=== PATIENT | female | born 1970 ===

== ENCOUNTER 2017-03-13 23:57 | Observation (INO) | payer BC ==
[2017-03-14 00:14] VITALS: BMI 23.0
[2017-03-14] MEDS ORDERED: Sodium Chloride 0.9% 1,000 ML IV STA (00:33)
[2017-03-14] MEDS ORDERED: HYDROmorphone 1 mg/ml ISec IVP STA ×2 (00:33→04:00)
--- NOTE | 2017-03-14 00:39 | ED PDOC ---
Arrival/HPI - General Time Seen by Provider: 03/14/17 00:27 Historian: Patient - History of Present Illness Narrative History of Present Illness (Text): 03/14/17 00:38 A 47 year old female, whose past medical history includes kidney stones and asthma, presents to the emergency department complaining of onset right flank pain radiating to right side of abdomen. Patient reports vomiting once and some nausea. Patient denies any history of fever, chills or any other complaints at this time. Symptom Onset: Sudden Symptom Course: Unchanged Activities at Onset: Rest Context: Home Past Medical History - Provider Review Nursing Documentation Reviewed: Yes - Cardiac Hx Cardiac Disorders: No - Pulmonary Hx Asthma: Yes - HEENT Hx HEENT Disorder: No - Endocrine/Metabolic Hx Endocrine Disorders: No - Hematological/Oncological Hx Blood Disorders: No - Integumentary Hx Dermatological Disorder: No - Musculoskeletal/Rheumatological Hx Musculoskeletal Disorders: No - Gastrointestinal Hx Gastrointestinal Disorders: No - Genitourinary/Gynecological Hx Genitourinary Disorders: No - Psychiatric Hx Psychophysiologic Disorder: No Hx Substance Use: No - Surgical History Hx Section: Yes Other/Comment: Right shoulder and right knee sx - Anesthesia Hx Anesthesia: No Family/Social History - Physician Review Nursing Documentation Reviewed: Yes Family/Social History: No Known Family HX Smoking Status: Never Smoked Hx Alcohol Use: No Hx Substance Use: No Allergies/Home Meds Allergies/Adverse Reactions: Allergies No Known Allergies Allergy (Verified 08/08/16 18:40) Home Medications: Home Meds Medication Instructions Recorded Confirmed Albuterol Sulfate [Proventil] 2 puff IH PRN PRN 08/08/16 03/14/17 Review of Systems - Physician Review All systems were reviewed & negative as marked: Yes - Review of Systems Constitutional: absent: Fevers, Other (chills) Gastrointestinal: Abdominal Pain (r sided), Nausea, Vomiting Skin: Other (right flank pain) Physical Exam Vital Signs Reviewed: Yes Vital Signs Temp Pulse Resp BP Pulse Ox 03/14/17 03:52 83 20 129/97 H 100 03/14/17 00:14 99 F 76 20 142/91 H 98 Appearance: Positive for: Well-Appearing, Non-Toxic, Comfortable Pain Distress: None Mental Status: Positive for: Alert and Oriented X 3 - Systems Exam Head: Present: Atraumatic, Normocephalic Pupils: Present: PERRL Extroacular Muscles: Present: EOMI Conjunctiva: Present: Normal Mouth: Present: Moist Mucous Membranes Neck: Present: Normal Range of Motion Respiratory/Chest: Present: Clear to Auscultation, Good Air Exchange. No: Respiratory Distress, Accessory Muscle Use Cardiovascular: Present: Regular Rate and Rhythm, Normal S1, S2. No: Murmurs Abdomen: Present: Normal Bowel Sounds. No: Tenderness, Distention, Peritoneal Signs Back: Present: Other (r flank tenderness) Upper Extremity: Present: Normal Inspection. No: Cyanosis, Edema Lower Extremity: Present: Normal Inspection. No: Edema Neurological: Present: GCS=15, CN II-XII Intact, Speech Normal Skin: Present: Warm, Dry, Normal Color. No: Rashes Psychiatric: Present: Alert, Oriented x 3, Normal Insight, Normal Concentration Medical Decision Making ED Course and Treatment: 03/14/17 00:37 Impression: A 47 year old female with right flank pain radiating to right side of abdomen. Plan: -- labs -- Urinalysis -- Dilaudid, IV fluids, Zofran -- Reassess and disposition Prior Visits: Notes and results from previous visits were reviewed. Patient was last seen in the emergency department on 08/08/16 for evaluation of an asthma attack. Progress Notes: CT Abdomen and Pelvis Without Intravenous Contrast FINDINGS: LOWER THORAX: No infiltrate seen in the lung bases. ABDOMEN: LIVER: No acute abnormality of the liver identified. GALLBLADDER AND BILE DUCTS: No CT evidence of acute cholecystitis. No evidence of significant biliary ductal dilatation. PANCREAS: No CT evidence of acute pancreatitis. SPLEEN: No acute abnormality of the spleen identified. ADRENALS: No acute abnormality of the adrenal glands identified. KIDNEYS AND URETERS: 3.5 mm obstructing stone at the right UVJ/ureterovesicular junction. This is best seen on image 147 of series 2, and is causing mild right hydroureteronephrosis. There is also mild right perinephric and periureteric stranding Multiple tiny, nonobstructing bilateral renal stones. 1 cm low density lesion in the left kidney, most likely a cyst. STOMACH AND BOWEL: No acute abnormality of the stomach, small bowel or colon identified. No evidence of bowel obstruction. APPENDIX: Appendix is seen, and is within normal limits in appearance. PELVIS: BLADDER: No acute abnormality of the bladder identified. REPRODUCTIVE: Small 2.5 cm low-density lesion in the right ovary, suspicious for a small right ovarian cyst. This appears to have a thick wall, and there is adjacent right adnexal fluid. No associated gas. Uterus has a bulging contour anteriorly and posteriorly, most likely secondary to multiple uterine fibroids. The largest of these is an approximately 3.3 cm posterior fibroid. ABDOMEN and PELVIS: INTRAPERITONEAL SPACE: Small amount of free fluid in the cul-de-sac. No evidence of free intraperitoneal air. BONES/JOINTS:No acute fractures or other acute bony abnormality noted. SOFT TISSUES: Extensive (too numerous to count) small, round densities are seen in the gluteal subcutaneous fat bilaterally, some of which are calcified. This most likely represent extensive injection pain on this. There is also marked, diffuse stranding of the gluteal subcutaneous fat bilaterally. Post operative changes involving the anterior abdominal and pelvic wall, which are most likely related to prior abdominal plasty. No evidence of soft tissue gas. VASCULATURE: No evidence of abdominal aortic aneurysm. No evidence of periaortic hemorrhage. LYMPH NODES: No evidence of diffuse lymphadenopathy. IMPRESSION: - 3.5 mm obstructing stone at the right UVJ/ureterovesicular junction. - Suspect a small cystic lesion in the right ovary, with adjacent fluid. This could represent an involuting cyst, such as an involuting corpus luteal cyst. Recommend follow up pelvic ultrasound as indicated clinically. - Findings suspicious for extensive injection granulomas in the gluteal subcutaneous fat bilaterally. There is also fat stranding in the gluteal subcutaneous fat bilaterally. This could represent extensive scarring or postoperative fluid, however, diffuse gluteal cellulitis can also have this appearance, and recommend clinical correlation. - See above for remaining findings. Dictated and Authenticated by: Jessica Malik MD 03/14/2017 4:14 AM Eastern Time ([place] & [place]) 03/14/17 05:[address] Patricio, who agrees and accepts patient under his service. - Lab Interpretations Lab Results: 03/14/17 00:20 03/14/17 00:20 Lab Results 03/14/17 00:20: WBC 7.6 D, RBC 4.59, Hgb 13.5, Hct 38.9, MCV 84.7, MCH 29.4, MCHC 34.7, RDW 12.7, Plt Count 236, MPV 10.7 03/14/17 00:20: Sodium 143, Potassium 3.9, Chloride 105, Carbon Dioxide 26, Anion Gap 16, BUN 15, Creatinine 1.0, Est GFR ( Amer) > 60, Est GFR (Non- Af Amer) 59, Random Glucose 120 H, Calcium 9.1, Total Bilirubin 0.3, AST 26, ALT 24, Alkaline Phosphatase 40, Total Protein 7.3, Albumin 4.3, Globulin 3.0, Albumin/Globulin Ratio 1.4, Lipase 137 03/14/17 00:20: Urine Color Yellow, Urine Appearance Clear, Urine pH 8.0, Ur Specific [place] 1.015, Urine Protein Trace H, Urine Glucose (UA) Negative, Urine Ketones Trace H, Urine Blood Moderate H, Urine Nitrate Negative, Urine Bilirubin Negative, Urine Urobilinogen 0.2, Ur Leukocyte Esterase Trace H, Urine RBC 10 - 15, Urine WBC 2 - 5, Ur Epithelial Cells 1 - 3, Urine Bacteria Small, Urine HCG, Qual Negative I have reviewed the lab results: Yes - RAD Interpretation Radiology Orders: 03/14/17 02:35 ABD & PELVIS W/O PO OR IV CONT [CT] Stat - Medication Orders Current Medication Orders: Discontinued Medications Hydromorphone HCl (Dilaudid) 1 mg IVP STAT STA Stop: 03/14/17 00:34 Last Admin: 03/14/17 00:46 Dose: 1 mg MAR Pain Assessment Document 03/14/17 00:46 RD (Rec: 03/14/17 00:47 RD [id number]) Pain Reassessment Is this a pain reassessment? No Sleep Is patient sleeping during reassessment? No Presence of Pain Presence of Pain Yes IVP Administration Document 03/14/17 00:46 RD (Rec: 03/14/17 00:47 RD [id number]) Charges for Administration # of IVP Administrations 1 Hydromorphone HCl (Dilaudid) 1 mg IVP STAT STA Stop: 03/14/17 04:01 Last Admin: 03/14/17 04:10 Dose: 1 mg MAR Pain Assessment Document 03/14/17 04:10 HARDEEP (Rec: 03/14/17 04:10 [id number][place] Pain Reassessment Is this a pain reassessment? Yes Sleep Is patient sleeping during reassessment? No Presence of Pain Presence of Pain Yes Location Left, Right or Bilateral Right Pain Location Body Site Abdomen IVP Administration Document 03/14/17 04:10 HARDEEP (Rec: 03/14/17 04:10 [id number]) Charges for Administration # of IVP Administrations 1 Sodium Chloride (Sodium Chloride 0.9%) 1,000 mls @ 999 mls/hr IV .Q1H1M STA Stop: 03/14/17 01:33 Last Admin: 03/14/17 00:47 Dose: 999 mls/hr eMAR Start Stop Document 03/14/17 00:47 RD (Rec: 03/14/17 00:47 RD [id number]) Intravenous Solution Start Date 03/14/17 Start Time 00:47 End Date 03/14/17 End time 01:47 Total Infusion Time 60 Ondansetron HCl (Zofran Inj) 4 mg IVP ONCE ONE Stop: 03/14/17 00:34 Last Admin: 03/14/17 00:44 Dose: 4 mg IVP Administration Document 03/14/17 00:44 RD (Rec: 03/14/17 00:47 RD [id number]) Charges for Administration # of IVP Administrations 1 Ondansetron HCl (Zofran Inj) 4 mg IVP ONCE ONE Stop: 03/14/17 04:01 Last Admin: 03/14/17 04:10 Dose: 4 mg IVP Administration Document 03/14/17 04:10 HARDEEP (Rec: 03/14/17 04:11 [id number]) Charges for Administration # of IVP Administrations 1 - Scribe Statement The provider has reviewed the documentation as recorded by the Ruth Zimmerman Provider Scribe Attestation: All medical record entries made by the Ruth were at my direction and personally dictated by me. I have reviewed the chart and agree that the record accurately reflects my personal performance of the history, physical exam, medical decision making, and the department course for this patient. I have also personally directed, reviewed, and agree with the discharge instructions and disposition. Disposition/Present on Arrival - Present on Arrival Any Indicators Present on Arrival: No History of DVT/PE: No History of Uncontrolled Diabetes: No Urinary Catheter: No History Surgical Site Infection Following: None - Disposition Have Diagnosis and Disposition been Completed?: Yes Diagnosis: Renal colic, Intractable pain Disposition: HOSPITALIZED Disposition Time: 05:18 Patient Plan: Observation Condition: STABLE
[2017-03-14 00:52] LABS: HEMATOCRIT 38.9 % (36.0-48.0); MEAN CELL VOLUME 84.7 fl (80.0-105.0); MEAN CORPUSCULAR HEMOGLOBIN 29.4 pg (25.0-35.0); MEAN CORPUSCULAR HGB CONC 34.7 g/dl (31.0-37.0); MEAN PLATELET VOLUME 10.7 fl (7.0-11.0); RED CELL DISTRIBUTION WIDTH 12.7 % (11.5-14.5); WHITE BLOOD COUNT 7.6 10^3/ul (4.5-11.0)
[2017-03-14 00:54] LABS: URINE BILIRUBIN NEGATIVE (NEGATIVE); URINE BLOOD MODERATE (NEGATIVE); URINE GLUCOSE (UA) NEGATIVE (NEGATIVE); URINE KETONE TRACE mg/dL (NEGATIVE); URINE LEUKOCYTE ESTERASE TRACE Leu/uL (NEGATIVE); URINE PROTEIN TRACE mg/dL (<30 mg/dL); URINE UROBILINOGEN 0.2 E.U./dL (<1 E.U./dL)
[2017-03-14 01:03] LABS: URINE APPEARANCE CLEAR (CLEAR); URINE COLOR YELLOW (YELLOW)
[2017-03-14 01:06] LABS: ALB/GLOB RATIO 1.4 (1.1-1.8); ALKALINE PHOSPHATASE 40 U/L (38-126); ALT/SGPT 24 U/L (7-56); AST/SGOT 26 U/L (14-36); BILIRUBIN,TOTAL 0.3 mg/dL (0.2-1.3); BLOOD UREA NITROGEN 15 mg/dL (7-21); CALCIUM 9.1 mg/dL (8.4-10.5); CARBON DIOXIDE 26 mmol/L (21-33); CHLORIDE 105 mmol/L (98-107); GFR AFRICAN-AMERICAN > 60; GLUCOSE,RANDOM 120 mg/dL (70-110); LIPASE 137 U/L (23-300); POTASSIUM 3.9 mmol/L (3.6-5.0); SODIUM 143 mmol/L (132-148); TOTAL PROTEIN 7.3 g/dL (5.8-8.3)
[2017-03-14 01:10] LABS: URINE BACTERIA SMALL (NEG)
--- NOTE | 2017-03-14 04:14 | CT ---
EXAM: CT Abdomen and Pelvis Without Intravenous Contrast EXAM DATE/TIME: 03/14/2017 2:35 AM CLINICAL HISTORY: 47 years old, female; Pain; Abdominal pain; Flank; Right; Prior surgery; Surgery date: 6+ months; Surgery type: C section; Additional info: Right flank pain TECHNIQUE: Axial computed tomography images of the abdomen and pelvis without intravenous contrast. All CT scans at this facility use one or more dose reduction techniques, viz.: automated exposure control; ma/kV adjustment per patient size (including targeted exams where dose is matched to indication; i.e. head); or iterative reconstruction technique. Coronal and sagittal reformatted images were created and reviewed. COMPARISON: No relevant prior studies available. FINDINGS: LOWER THORAX: No infiltrate seen in the lung bases. ABDOMEN: LIVER: No acute abnormality of the liver identified. GALLBLADDER AND BILE DUCTS: No CT evidence of acute cholecystitis. No evidence of significant biliary ductal dilatation. PANCREAS: No CT evidence of acute pancreatitis. SPLEEN: No acute abnormality of the spleen identified. ADRENALS: No acute abnormality of the adrenal glands identified. KIDNEYS AND URETERS: 3.5 mm obstructing stone at the right UVJ/ureterovesicular junction. This is best seen on image 147 of series 2, and is causing mild right hydroureteronephrosis. There is also mild right perinephric and periureteric stranding Multiple tiny, nonobstructing bilateral renal stones. 1 cm low density lesion in the left kidney, most likely a cyst. STOMACH AND BOWEL: No acute abnormality of the stomach, small bowel or colon identified. No evidence of bowel obstruction. APPENDIX: Appendix is seen, and is within normal limits in appearance. PELVIS: BLADDER: No acute abnormality of the bladder identified. REPRODUCTIVE: Small 2.5 cm low-density lesion in the right ovary, suspicious for a small right ovarian cyst. This appears to have a thick wall, and there is adjacent right adnexal fluid. No associated gas. Uterus has a bulging contour anteriorly and posteriorly, most likely secondary to multiple uterine fibroids. The largest of these is an approximately 3.3 cm posterior fibroid. ABDOMEN and PELVIS: INTRAPERITONEAL SPACE: Small amount of free fluid in the cul-de-sac. No evidence of free intraperitoneal air. BONES/JOINTS:No acute fractures or other acute bony abnormality noted. SOFT TISSUES: Extensive (too numerous to count) small, round densities are seen in the gluteal subcutaneous fat bilaterally, some of which are calcified. This most likely represent extensive injection pain on this. There is also marked, diffuse stranding of the gluteal subcutaneous fat bilaterally. Post operative changes involving the anterior abdominal and pelvic wall, which are most likely related to prior abdominal plasty. No evidence of soft tissue gas. VASCULATURE: No evidence of abdominal aortic aneurysm. No evidence of periaortic hemorrhage. LYMPH NODES: No evidence of diffuse lymphadenopathy. IMPRESSION: - 3.5 mm obstructing stone at the right UVJ/ureterovesicular junction. - Suspect a small cystic lesion in the right ovary, with adjacent fluid. This could represent an involuting cyst, such as an involuting corpus luteal cyst. Recommend follow up pelvic ultrasound as indicated clinically. - Findings suspicious for extensive injection granulomas in the gluteal subcutaneous fat bilaterally. There is also fat stranding in the gluteal subcutaneous fat bilaterally. This could represent extensive scarring or postoperative fluid, however, diffuse gluteal cellulitis can also have this appearance, and recommend clinical correlation. - See above for remaining findings.
[2017-03-14] MEDS: Sodium Chloride 0.9% 1,000 ML IV SCH ×2 (05:41→17:01)
[2017-03-14] MEDS ORDERED: Morphine 2 mg/ml ISec IVP PRN (07:13)
[2017-03-14] MEDS ORDERED: HYDROmorphone 2 mg/ml ISec IVP PRN (08:04)
[2017-03-14] MEDS ORDERED: Albuterol 0.5% Inhal Sol (2.5 mg/0.5 ml) UD IH PRN (08:47)
--- NOTE | 2017-03-14 10:47 | HP ---
CHIEF COMPLAINT: Severe right lower quadrant pain with an obstructing 3.5-mm stone. HISTORY OF PRESENT ILLNESS: I saw the patient resting comfortably in her bed. I got a call last night from the hospital that she was in with abdominal pain. She is a 47-year-old female with severe right-sided flank pain radiating to her groin, she has had this before about 10 years ago. She has a past medical history of kidney stones and asthma. This is a sudden onset, severe and she is miserable. PAST MEDICAL HISTORY: She has a history of asthma, kidney stones in the past. She had surgery, and right shoulder and right knee surgery. FAMILY HISTORY: No known family history. SOCIAL HISTORY: Never smoked or drugs. No alcohol. ALLERGIES: NO KNOWN DRUG ALLERGIES. MEDICATIONS: She takes albuterol every now and then for asthma. REVIEW OF SYSTEMS: She has no acute vision changes or hearing changes. No sore throat. No neck pain. No chest pain or palpitations. No shortness of breath or cough. No leg pain. She does have severe right lower quadrant abdominal pain, cramping, sharp. No nauseousness, no vomiting, but miserable. PHYSICAL EXAMINATION: VITAL SIGNS: She has a 99 temperature, 76 pulse, 20 respiratory rate, 142/91 blood pressure, 98% O2 sat on room air. GENERAL: Well appearing, very uncomfortable. Alert and oriented x3. HEENT: Head is atraumatic and normocephalic. Pupils are equal and reactive to light and accommodation. Extraocular muscles are intact. Throat is moist. NECK: Supple. HEART: Regular rate. Normal S1 and S2. LUNGS: Decreased breath sounds, but clear to auscultation. ABDOMEN: Severe pain in right lower quadrant with guarding. No rebound. Decreased bowel sounds. EXTREMITIES: No edema. NEUROLOGIC: GCS is 15. Cranial nerves II to XII grossly intact. Normal speech. Skin is warm and dry. Alert and oriented x3. NODES: Thyroid is midline. No palpable or appreciable lymphadenopathy. DIAGNOSTIC DATA: She had a positive CAT showing a 3.5-mm obstructing stone in the right UVJ area and a right cystic lesion in ovary. She had blood test. Urine was moderate blood, negative , small bacteria. She has a 7.6 white count, 13.5 hemoglobin, 38.9 hematocrit with 236 platelets. Sodium 143, potassium 3.9, BUN 15, creatinine is 1, GFR is 69, sugar is 120, calcium is 9.1. Total bilirubin is 0.3, AST is 26, ALT is 24, alkaline phosphatase 40. Total protein is 7.3, albumin is 4.3, lipase is 137. She will have a consult with urology. She has IV fluids running. She has to have morphine and she has to have Dilaudid. She is in severe pain. Zofran for the nauseousness. We will put her back on albuterol as needed. Hopefully, she will do very well. She is on observation right now, hopefully will get rid of the pain by tomorrow. Nico Patricio DO
[2017-03-14] MEDS ORDERED: DiphenhydrAMINE 50 mg/ml Inj IVP STA (13:25)
[2017-03-14] MEDS ORDERED: MethylPREDNISolone 40 mg Vial IVP STA (13:41)
--- NOTE | 2017-03-15 02:17 | CON ---
DATE: 03/14/2017 GENITOURINARY CONSULTATION CHIEF COMPLAINT: Right-sided pain. HISTORY OF PRESENT ILLNESS: This is a 47-year-old female, seen in her room at [facility]. The patient was admitted with renal colic. She was found to have a small ureteral calculus and was admitted for pain management. The patient had a few days' history of right-sided pain which became severe. The patient had a history of kidney stone many years ago. She has no fever or chills. She denies any nausea or vomiting. PAST MEDICAL HISTORY: History of asthma, kidney stones. MEDICATIONS AT HOME: Include albuterol as needed for asthma. ALLERGIES: NO KNOWN DRUG ALLERGIES. FAMILY HISTORY: Noncontributory. SOCIAL HISTORY: No smoking or EtOH use. REVIEW OF SYSTEMS: A 12-point review of systems was obtained. Positive for right flank pain and others as per the history of present illness, other systems are negative. MEDICATIONS: The patient has been receiving Toradol and was on Dilaudid which has now been discontinued. PHYSICAL EXAMINATION: GENERAL: The patient is awake and alert. She is answering questions. She is in no acute distress. VITAL SIGNS: She has been afebrile, temperature of 97.9, pulse 76, blood pressure 123/83, respirations were 420. NECK: Supple. There is no adenopathy. CHEST: Exam of the chest revealed normal inspiratory effort. CARDIAC EXAM: Showed positive S1 and S2. There is no peripheral edema. ABDOMINAL EXAM: The abdomen is soft, nontender, nondistended. There is mild right CVA tenderness. EXTREMITIES: There is no cyanosis or edema noted. LABORATORY EXAM: WBC count 7.6, creatinine 1.0 with a GFR of 59. Urinalysis showed 10 to 15 rbc, 2 to 5 wbc, 1 to 3 epithelial cells, nitrites are negative. On radiologic exam, the patient had a CT scan of the abdomen and pelvis which showed there was a 3.5-mm obstructing stone at the right UVJ. There is a suspected small cystic lesion in the right ovary. There are extensive injection granulomas in the gluteal subcutaneous fat bilaterally with fat stranding. IMPRESSION AND PLAN: This is a 47-year-old patient with right renal colic. Urologically, the patient's pain is currently controlled. There is no indication for emergent urologic surgery. The patient has no fever or evidence of sepsis. She has a normal white count. Stone is small and should be able to pass spontaneously. Plan will be to start the patient on Flomax 0.4 mg p.o. daily. She should be continued on fluids and I would start her on a diet at this time. If the patient's pain remains controlled, I would advise the patient could be discharged tomorrow morning and follow up in my office as an outpatient. If stone does not pass in a few days' time, we can consider elective ureteroscopy and stone removal. If the patient's pain cannot be controlled, we can consider stent insertion at this time; however, again, the patient does not have an indication for emergent urologic surgery. If the patient is remaining as an inpatient, I would make the patient n.p.o. after midnight in case we need to place a stent tomorrow. Collin Tolbert MD
[2017-03-15] MEDS: Sodium Chloride 0.9% 1,000 ML IV SCH ×2 (05:04→18:33)
[2017-03-15 06:28] LABS: HEMATOCRIT 33.1 % (36.0-48.0); MEAN CELL VOLUME 85.5 fl (80.0-105.0); MEAN CORPUSCULAR HEMOGLOBIN 28.9 pg (25.0-35.0); MEAN CORPUSCULAR HGB CONC 33.8 g/dl (31.0-37.0); MEAN PLATELET VOLUME 10.9 fl (7.0-11.0); RED CELL DISTRIBUTION WIDTH 12.9 % (11.5-14.5); WHITE BLOOD COUNT 10.7 10^3/ul (4.5-11.0)
[2017-03-15 06:50] LABS: ALB/GLOB RATIO 1.2 (1.1-1.8); ALKALINE PHOSPHATASE 35 U/L (38-126); ALT/SGPT 22 U/L (7-56); AST/SGOT 24 U/L (14-36); BILIRUBIN,TOTAL 0.6 mg/dL (0.2-1.3); BLOOD UREA NITROGEN 8 mg/dL (7-21); CALCIUM 8.2 mg/dL (8.4-10.5); CARBON DIOXIDE 22 mmol/L (21-33); CHLORIDE 111 mmol/L (98-107); GFR AFRICAN-AMERICAN > 60; GLUCOSE,RANDOM 92 mg/dL (70-110); POTASSIUM 3.3 mmol/L (3.6-5.0); SODIUM 141 mmol/L (132-148); TOTAL PROTEIN 5.8 g/dL (5.8-8.3)
[2017-03-15] MEDS ORDERED: Iohexol 240 (50 ml) ONE (12:43)
[2017-03-15] MEDS ORDERED: cefTRIAXone (Rocephin) 1 gm Inj ONE (12:43)
[2017-03-15] MEDS ORDERED: Propofol 10 mg/ml Inj (20 ML) ONE (13:32)
[2017-03-15] MEDS ORDERED: Midazolam 2 MG/2 ML VIAL ONE (13:33)
--- NOTE | 2017-03-15 14:37 | PN ---
DATE: 03/14/2017 SUBJECTIVE: I saw her resting comfortably in bed this morning, but she moves at all. She has severe back pain. She is on albuterol, potassium, IV fluids, Toradol and Zofran. She is having allergic reaction to either morphine or Dilaudid, we are not sure which, because it started 8 hours after the last dose, but she is in pain and she is n.p.o., so it is possible she will go for cystoscopy and trying to get the stone out. PHYSICAL EXAMINATION: VITAL SIGNS: She has 99.2 temperature, 81 pulse, 104/70 blood pressure, 18 respiratory rate, 90% O2 sat on room air. HEENT: Head is atraumatic, normocephalic. HEART: Regular rate. LUNGS: Decreased breath sounds, but clear. ABDOMEN: Tender, soft in right lower quadrant, mild guarding, no rebound. There was CVA tenderness. EXTREMITIES: No edema. LABORATORY DATA: She has 10.7 white count, 11.2 hemoglobin, 30.1 hematocrit, 193 platelets. 141 sodium, potassium 3.3, I will replace the potassium. She has a BUN 8, creatinine 0.6, GFR is greater than 60, sugar is 92, calcium 8.2, total bilirubin 0.6, AST is 24, ALT is 22, alkaline phosphatase 35. Total protein 5.8, albumin 3.2, lipase is 137. Urine, not , small bacteria and bloody. As per Urology, I have a feeling like they do a cystoscopy today. Continue IV fluids and I will see if we do a procedure or not today for stent placement and possible discharge later not sure, we will find out from Urology when they come in. Elisabeth Alva has got a kidney stone causing lots of pain with obstruction. Nico Patricio DO
--- NOTE | 2017-03-15 15:38 | RAD ---
PROCEDURE: Fluoroscopy up to 1 hour HISTORY: STENT INSERTION COMPARISON: TECHNIQUE: Fluoroscopy was provided in the operating room. 39.9 seconds of fluoro time were used. Nine images were submitted FINDINGS: The study shows placement of a right ureteral stent. IMPRESSION: As above
--- NOTE | 2017-03-15 15:51 | OP ---
PROCEDURE DATE: 03/15/2017 PREOPERATIVE DIAGNOSES: Renal colic; hydronephrosis, right sided; right ureteral calculus. ATTENDING SURGEON: Collin Tolbert MD ANESTHESIA: General. SPECIMENS: There were none. DRAINS: A 6 x 22 right ureteral stent. COMPLICATIONS: There were none. PROCEDURE: Cystoscopy, right retrograde pyelogram, right ureteroscopy, insertion of a right ureteral stent. OPERATIVE FINDINGS: After informed consent was obtained, the patient was taken to the operating room and placed on the operating table. Anesthesia was administered. The patient was then placed in the dorsal lithotomy position and prepped and draped in usual sterile fashion. A 21-Sammarinese cystoscope was passed into the patient's bladder under direct vision. A full survey inspection of bladder was then performed which revealed no stones, tumors, or foreign bodies of the bladder. Both ureteral orifices were visualized and appeared within normal limits. The right ureteral orifice appeared slightly edematous compared to the left. At this point, a Cherokee 5-Sammarinese catheter was introduced through the cystoscope and guided into the right ureteral orifice. A right retrograde pyelogram was then performed by filling contrast through the Cherokee catheter into the right ureter during real-time fluoroscopy. The right retrograde pyelogram showed some possible small filling defects which were mobile in the distal ureter. There was some mild dilatation of the upper ureter. There was no obvious hydronephrosis. At this point, given the patient was still having symptoms of renal colic, decision was made to perform a ureteroscopy. A sensor wire was obtained. It was passed through the Cherokee catheter into the right ureter and guided up the ureter under fluoroscopic guidance until it coiled in the upper collecting system. At this point, the bladder was drained. The cystoscope was removed while leaving the wire in place. A 7.5-Sammarinese semirigid ureteroscope was then obtained. It was passed through bladder under direct vision and was able to be guided into the right ureteral orifice without difficulty. The ureteroscope was then able to be advanced proximally under direct vision until the renal pelvis and kidney were directly visualized. No stones were encountered. No ureteral tumors or other abnormalities were noted. At this point, the ureteroscope was withdrawn under direct vision, and the entire ureter was inspected. Again there were no stones or other ureteral abnormalities noted. At this point, the ureteroscope was removed. The cystoscope was re-passed while back loading a guidewire. Decision was made to place a stent as there was some mild edema of the orifice, and the patient was still having symptoms of renal colic. A 6 x 22 stent was obtained. It was passed through the cystoscope over the guidewire into the right ureter. The stent was advanced proximally to direct and fluoroscopic guidance until it coiled in the upper collecting system. The guidewire was then removed and a coil was seen in the renal pelvis on fluoroscopy. A coil was seen in bladder on cystoscopy. The patient tolerated the procedure well. She was taken to the recovery room awake in stable condition. Collin Tolbert MD
[2017-03-15 17:59] VITALS: RESP 20; O2SAT 99
[2017-03-16] MEDS: Sodium Chloride 0.9% 1,000 ML IV SCH (04:49)
[2017-03-16 07:41] VITALS: BP 140/90; PULSE 83
--- NOTE | 2017-03-16 08:15 | PN ---
DATE: 03/15/2017 POSTOPERATIVE PROGRESS NOTE SUBJECTIVE: The patient is seen in the recovery room. She is status post a cystoscopy, ureteroscopy and stent placement. The patient is currently feeling well. PHYSICAL EXAMINATION: VITAL SIGNS: She is afebrile with stable vital signs. ABDOMEN: Soft, nontender and nondistended. No CVA tenderness. NEUROLOGIC: The patient is awake and alert. ASSESSMENT: I discussed with her the findings that the stone apparently had passed and that she has a stent in place. PLAN: The patient is going to go back to the floor. She can resume her diet. If she is feeling okay, she can be discharged home tonight on oral antibiotics and oral analgesics. The patient is to follow up in my office on Sunday morning for a stent removal. The stent is on a string. Therefore, cystoscopy will not be necessary. I have discussed this with the patient. She understands and agrees. Collin Tolbert MD
[2017-03-16 08:26] VITALS: TEMP 99.4
[2017-03-16] MEDS ORDERED: Potassium Chloride 20 mEq ER Tab PO ONE (09:20)
[2017-03-16 09:32] LABS: HEMATOCRIT 34.6 % (36.0-48.0); MEAN CELL VOLUME 85.4 fl (80.0-105.0); MEAN CORPUSCULAR HEMOGLOBIN 29.1 pg (25.0-35.0); MEAN CORPUSCULAR HGB CONC 34.1 g/dl (31.0-37.0); MEAN PLATELET VOLUME 10.2 fl (7.0-11.0); RED CELL DISTRIBUTION WIDTH 12.6 % (11.5-14.5); WHITE BLOOD COUNT 7.8 10^3/ul (4.5-11.0)
[2017-03-16 09:38] LABS: ALB/GLOB RATIO 1.3 (1.1-1.8); ALKALINE PHOSPHATASE 45 U/L (38-126); ALT/SGPT 32 U/L (7-56); AST/SGOT 23 U/L (14-36); BILIRUBIN,TOTAL 0.8 mg/dL (0.2-1.3); BLOOD UREA NITROGEN 7 mg/dL (7-21); CALCIUM 8.3 mg/dL (8.4-10.5); CARBON DIOXIDE 23 mmol/L (21-33); CHLORIDE 104 mmol/L (95-110); GFR AFRICAN-AMERICAN > 60; GLUCOSE,RANDOM 119 mg/dL (70-110); POTASSIUM 3.6 mmol/L (3.6-5.0); SODIUM 137 mmol/L (132-148); TOTAL PROTEIN 6.5 g/dL (5.8-8.3)
--- NOTE | 2017-03-16 16:57 | DS ---
HISTORY OF PRESENT ILLNESS: She is in observation status in the hospital. She had a kidney stone. She had a stent placed by urology. She had pain last night and bloody urine, so we kept her over one more night. She is still in a little bit of pain, not as bad, still a little bit of bloody urine, but not as bad, starting to turn her volume positive. She is on IV fluids. We will discharge her after another 3 hours of IV fluids and after lunch. She will go home on albuterol. She will go home on some tramadol and some Zofran as needed. She is comfortable. She is walking around. She understands some right-sided pain, what I understand is she passed the stone. PHYSICAL EXAMINATION: VITAL SIGNS: She has 99.4 temperature, better; 83 pulse; 140/90 blood pressure; 20 respiratory rate and 99% O2 sat on room air. HEENT: Head is atraumatic and normocephalic. HEART: Regular rate. LUNGS: Clear to auscultation. ABDOMEN: Soft. EXTREMITIES: No edema. LABORATORY DATA: She has 10.7 white count, 11.2 hemoglobin, 33.1 hematocrit with 193 platelets. Sodium 141; potassium is 3.1, I gave her potassium this morning; BUN 8; creatinine 0.6; GFR is greater than 60; sugar is 92; calcium 8.2. Total bilirubin is 0.6. AST is 24, ALT is 22, alkaline phosphatase 35. Total protein is 5.8, albumin 3.2. She has E. coli. I will put her on some antibiotics and also write them as a prescription and she will follow with me on the outpatient. She is here for right kidney stone, severe pain, abdominal pain. She will follow up with the urologist, Dr. Almonte, to remove the stent and she had a 3.5-mm obstructing stone in the right ureterovesical junction and a right ovarian cyst. Nico Patricio DO MTDD
== END 2017-03-16 13:39 | disposition home or self-care (01) ==
LOC: ED 23:57 → ERH 03-14 05:16 → 3RSO 03-14 06:23
PROVIDERS: ADMIT Family Medicine; ATTEND Family Medicine
DX: N13.2 Hydronephrosis with renal and ureteral calculous obstruction (principal); B96.20 Unspecified Escherichia coli [E. coli] as the cause of diseases classified elsewhere; N83.201 Unspecified ovarian cyst, right side; J45.909 Unspecified asthma, uncomplicated
CPT/HCPCS: 36415; 52332; 52351; 74176; 80053; 81001; 83690; 84703; 85027; 87086; 87181; 96361; 96374; 96375; 96376; 99285; C1758; C1769; C2625; G0378; J0690; J0696; J1170; J1200; J1885; J2250; J2270; J2405; J2704; J2920; J3010; J3480; J7040; J7120; Q9966